=== PATIENT | male | born 1970 | race Caucasian/White ===

== ENCOUNTER 2016-10-31 09:35 | Emergency (ER) | payer OTHER ==
--- NOTE | ~2016-10-31 | US85 ---
STS. [facility] A Service of [facility] RADIOLOGY TEXT RESULTS PATIENT: DUSTY DE LOS SANTOS LOCATION: SED : 72 UNIT #: [id number] AGE: [address]: Jase Vee MD SEX: M ORDER DR: [id number] [place] [id number] MR#: [id number] Acc #: [id number] NAME: DUSTY DE LOS SANTOS : 1970 SEX: M STUDY DATE/TIME: 10/31/2016 10:57 UNIT: SED ROOM: STUDY DESCRIPTION: [facility] or [facility] Attending Physician: Jase Vee M.D. Ordering Physician: Jase Vee M.D. Primary Care Physician: Primary Care Physician No MEDICAL IMAGING REPORT This report is preliminary unless electronic signature is present. EXAM Right lower extremity venous duplex ultrasound 10/31/2016. HISTORY 46-year-old male with right-sided calf and foot pain and swelling for 1 week. COMPARISON None. FINDINGS Real time kiran-scale, color Doppler, and spectral Doppler analysis of the right lower extremity deep venous system demonstrates normal venous waveforms with normal compressibility, augmentation throughout. No evidence of right lower extremity deep venous thrombosis. IMPRESSION Negative for right lower extremity DVT. Dictated by... Jose Adams M.D. THIS IS AN ELECTRONICALLY VERIFIED REPORT Jose Adams M.D. at 11/01/2016 5:00 PM Leila TD: 10/31/2016 13:19 JOB #: [id number] MEDICAL IMAGING REPORT Page 1 of 1
[~2016-10-31 09:35] MED LIST: DARVOCET-N 1001 TAB PO
[2016-10-31 10:44] LABS: BASOPHIL% 0.5 % (0-2.5); EOSINOPHIL# 0.4 X10e3 (0-0.7); EOSINOPHIL% 5.1 % (0.0-7.0); HEMATOCRIT 37.9 % (38.0-50.0); LYMPHOCYTE# 1.7 X10e3 (1.0-3.5); LYMPHOCYTE% 22.9 % (17.0-45.0); MEAN CELL VOLUME 83.2 FL (83-96); MEAN CORPUSCULAR HEMOGLOBIN 28.6 PG (28-34); MEAN CORPUSCULAR HGB CONC 34.4 g/dL (30-36); MEAN PLATELET VOLUME 7.9 FL (6.5-11.5); MONOCYTE# 0.6 X10e3 (0-1.0); NEUTROPHIL# 4.6 X10e3 (1.5-7.1); NEUTROPHIL% 63.5 % (40-75); PLATELET COUNT 289 X10e3 (140-420); RED BLOOD COUNT 4.55 X10e (3.90-5.60); RED CELL DISTRIBUTION WIDTH 12.9 % (11.0-15.5); WHITE BLOOD COUNT 7.3 X10e3 (4.0-10.5)
[2016-10-31 10:47] LABS: DIFF IND NO
[2016-10-31 10:54] LABS: BUN/CREATININE RATIO 11.11; CALCIUM SERUM 8.4 mg/dL (8.4-10.2); CREATININE SERUM 0.9 mg/dL (0.6-1.4); GLOM FILT RATE Estimated 103.5 mL/min (>60); POTASSIUM 3.2 mmol/L (3.5-5.1)
== END 2016-10-31 11:49 | disposition home or self-care (01) ==
LOC: SED 09:35
PROVIDERS: Emergency Medicine
DX: L03.115 Cellulitis of right lower limb (principal); E87.6 Hypokalemia; F17.200 Nicotine dependence, unspecified, uncomplicated; Z98.890 Other specified postprocedural states
CPT/HCPCS: 36415; 80048; 85025; 87040; 93971; 99284

== ENCOUNTER 2016-12-29 14:27 | Inpatient (IN) | payer OTHER ==
--- NOTE | ~2016-12-29 | CT90 ---
[facility]. [facility] A Service of [facility] RADIOLOGY TEXT RESULTS PATIENT: DUSTY DE LOS SANTOS LOCATION: [facility] 564-01 : 72 UNIT #: [id number] AGE: [address]: Kimi Orona MD SEX: M ORDER DR: [id number] [place] [id number] E MR#: [id number] Acc #: [id number] NAME: DUSTY DE LOS SANTOS : 1970 SEX: M STUDY DATE/TIME: 12/29/2016 16:36 UNIT: SED ROOM: STUDY DESCRIPTION: CT Lower Ext Lt W Cont Attending Physician: Osei Sweeney M.D. Ordering Physician: Osei Sweeney M.D. Primary Care Physician: No Primary Care Physician MEDICAL IMAGING REPORT This report is preliminary unless electronic signature is present. EXAM CT of the left lower extremity. INDICATIONS Superficial infection of the left leg. Staph infection. Observation for abscess. 4-day duration. TECHNIQUE CT of the left lower extremity utilizing 100 mL Isovue-370 IV contrast. Coronal and sagittal reconstructions were obtained. This CT exam was performed with one or more of the following radiation dose reduction techniques: automatic exposure control, adjustment of mA and/or kV according to patient size, and iterative reconstruction. COMPARISON None available. FINDINGS There is generalized stranding within the subcutaneous fat with associated skin thickening overlying the anterior aspect of the distal thigh. Within the subcutaneous fat, there is a small loculated collection measuring 3.9 x 1.65 x 5.8 cm. This has an appearance typical for an abscess. The abscess is located along the distal third of the anterior thigh. No involvement of the anterior muscular compartment is identified. No underlying osseous abnormalities. There is no effusion. Patient does have a small Coffey's cyst in the left popliteal fossa. The vasculature in the left lower extremity is patent. No pathologically enlarged inguinal lymph nodes. There are a few small lymph nodes; however, they are subcentimeter in size. IMPRESSION 1. Area of focal inflammation along the anterior aspect of the distal [facility] A Service of [facility] RADIOLOGY TEXT RESULTS PATIENT: DUSTY DE LOS SANTOS LOCATION: [facility] 564-01 : 72 UNIT #: [id number] AGE: [address]: Kimi Orona MD SEX: M ORDER DR: thigh, compatible with the clinical history of cellulitis. 2. Loculated fluid collection in the region of the cellulitis isolated to the subcutaneous fat, measuring up to 5.8 cm. This is consistent with a small abscess. 3. No involvement of the adjacent muscular compartment. Dictated by... Syed Huerta M.D. THIS IS AN ELECTRONICALLY VERIFIED REPORT Syed Huerta M.D. at 12/30/2016 2:45 PM TAYLOR/rosemarie TD: 12/29/2016 18:45 JOB #: [id number] MEDICAL IMAGING REPORT Page 1 of 1
--- NOTE | ~2016-12-29 | DS ---
Unit #: [id number] #: [id number] Patient: DUSTY DE LOS SANTOS [id number] [address] [place], [place] [address] [id number] I MR#: [id number] NAME: DUSTY DE LOS SANTOS ROOM: 564 Age: 46 Sex: M Admission Date: 12/29/2016 : 1970 Discharge Date: 12/31/2016 Attending Physician: Kimi Orona M.D. Primary Care Physician: Primary Care Physician No DISCHARGE SUMMARY REASON FOR ADMISSION Left thigh abscess. HISTORY OF PRESENT ILLNESS/HOSPITAL COURSE Please refer to History and Physical for complete details of initial part of hospital course. Consultation was subsequently placed to [facility] for evaluation. Please see their procedure note for details. The patient underwent I and D per [facility]. Postoperatively he otherwise did well. He did have an episode of acute hypotension, likely secondary to pain medications. However, he did improve with IV fluids. This morning he is otherwise stable feeling well. Surgery services have cleared him from their standpoint for discharge home. He should have dressing changes on a b.i.d. basis and follow up with [facility] in approximately one to two weeks. Routine laboratory studies were ascertained through this hospital course. HIV screen was negative. CBC was noted on admission to have white count 11.1, hemoglobin 10.5, MCV was noted to be 81. His urine drug screen was positive for benzodiazepines, amphetamines, marijuana, as well as opioids. His wound culture and sensitivity did grow Staph aureus. Today, at time of discharge, his hemoglobin is 10.6, white count 14.3. BMP is otherwise unremarkable. He did undergo a CT of his lower extremity with contrast while here. There was a loculated fluid collection which was noted. The patient will be discharged home with appropriate follow up as outlined above. FINAL DISCHARGE DIAGNOSES 1. Left hip abscess/cellulitis, status post incision and drainage. 2. Polysubstance abuse/likely IV drug abuse. DISCHARGE MEDICATIONS 1. Doxycycline 100 mg p.o. b.i.d. times 10 days. 2. Lortab 7.5/325 one tab q.4 h. p.r.n. #24, prescription given by [facility]. Dictated by... Samuel Yo/corazon TD: 01/02/2017 22:45 Unit #: [id number] #: [id number] Patient: DUSTY DE LOS SANTOS JOB #: [id number] DISCHARGE SUMMARY Page 1 of 1 X Edwige Holden MD X DISCHARGE SUMMARY
--- NOTE | ~2016-12-29 | OR ---
Unit #: [id number] #: [id number] Patient: DUSTY DE LOS SANTOS [id number] [address] [address] [id number] Dennis MR#: [id number] NAME: DUSTY DE LOS SANTOS ROOM: 564 Date of Procedure: 12/30/2016 Admission Date: 12/29/2016 Surgeon: aVrun Chatman III, M.D. : 1970 Attending Physician: Kimi Orona M.D. Primary Care Physician: Primary Care Physician No OPERATIVE REPORT PREOPERATIVE DIAGNOSIS Left thigh abscess. POSTOPERATIVE DIAGNOSIS Left thigh abscess. PROCEDURE PERFORMED Incision and drainage of left thigh abscess. ANESTHESIA General. SPECIMEN Cultures and tissue sent to Pathology. COMPLICATIONS None apparent. ESTIMATED BLOOD LOSS Minimal. INDICATIONS FOR PROCEDURE This is a 46-year-old gentleman, who has had some cellulitis with an abscess formation. He is here today for incision and drainage. DESCRIPTION OF PROCEDURE After consent was obtained, the patient was brought to the operating room and placed in the supine position. General anesthetic was administered, and his left thigh area was prepped and draped in standard surgical fashion. I made a circular incision around the indurated area. This led to a fairly large abscess cavity. All the loculated areas were broken up and cultures were sent. I achieved good hemostasis and I packed the wound with Betadine soaked Kerlix gauze. He tolerated the procedure without any problems and returned to the recovery room in stable condition. Dictated by... Varun Chatman III, M.D. VCL/rell TD: 12/30/2016 15:43 Unit #: [id number] #: [id number] Patient: DUSTY DE LOS SANTOS JOB #: [id number] OPERATIVE REPORT Page 1 of 1 X Varun Chatman III, MD PROCEDURE OPERATIVE NOTE
--- NOTE | ~2016-12-29 | HP ---
Unit #: [id number] #: [id number] Patient: DUSTY DE LOS SANTOS [id number] [address] [address] [id number] I MR#: [id number] NAME: DUSTY DE LOS SANTOS ROOM: 564 Age: 46 Sex: M Admission Date: 12/29/2016 : 1970 Attending Physician: Milton Jackson M.D. Primary Care Physician: Primary Care Physician No HISTORY AND PHYSICAL CHIEF COMPLAINT Left thigh abscess and cellulitis. HISTORY OF PRESENT ILLNESS This pleasant 46-year-old male was transferred from [facility] for an abscess and cellulitis over the anterior left thigh. About four days ago, the patient manipulated a pimple-like lesion over his anterior left thigh. He states he was able to express some greenish material, however, notes increasing pain, swelling, now involving the entire left thigh and extending into the left calf region associated with nausea and vomiting and pain. He does have a history of staph infections in the past. He went to [facility] where he was treated with IV vancomycin, morphine, Zofran, IV fluids. PAST MEDICAL HISTORY 1. History of staph abscess in the past. 2. Right arthroscopic knee surgery. ALLERGIES None. HOME MEDICATIONS None. SOCIAL HISTORY The patient lives with his sister. He smokes about a pack per day of tobacco. Does not drink alcohol. Although he injected heroin in the past, he no longer injects drugs. 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 FAMILY HISTORY Negative for diabetes. REVIEW OF SYSTEMS Notable for nausea, vomiting, leg pain, abscess, staph, tobacco use, previous heroin abuse, right arthroscopic knee surgery. All other systems were reviewed and are negative. PHYSICAL EXAMINATION VITAL SIGNS: Temperature 98.7, pulse 109, respirations 18, blood pressure 122/72, O2 saturation 99% on room air. GENERAL: Pleasant, 46-year-old male who looks to be uncomfortable. HEENT: Eyes PERRLA. Extraocular muscles are intact. Pharynx benign. Unit #: [id number] #: [id number] Patient: DUSTY DE LOS SANTOS NECK: Supple without adenopathy or thyromegaly. CHEST: Clear. HEART: Normal S1, S2 without S3, S4 or murmur. ABDOMEN: Bowel sounds are present. No hepatosplenomegaly, tenderness or masses. EXTREMITIES: Without clubbing, cyanosis, or edema. Pedal pulses are present. SKIN: Early abscess above the right upper lip. There is an abscess over the left anterior thigh with extensive cellulitis of the left thigh extending into the left calf. Pedal pulses are present. No splinter hemorrhages noted over the fingernail beds. Multiple tattoos are noted. NEUROLOGIC: Awake, alert, oriented. Cranial nerves are intact. Equal strength throughout. DIAGNOSTIC STUDIES LABORATORY: Hematocrit 37.7, white blood cell count 16, normal platelet count. SMA-12 is normal. Normal lactic acid. IMAGING: CT scan shows area of focal inflammation along the anterior aspect of the distal thigh compatible with clinical history of cellulitis. Loculated fluid collection in the region of the cellulitis isolated to the subcutaneous fat measuring up to 5.8 cm consistent with an abscess. No involvement of the adjacent muscular compartment. ASSESSMENT 1. Left thigh abscess with extensive cellulitis. 2. Early abscess above the right upper lip. PLAN 1. IV vancomycin and give one dose of Levaquin. 2. Surgical consultation. 3. Supportive treatment. 4. DVT prophylaxis. Dictated by Bee Kim M.D. AML/cs TD: 12/29/2016 21:55 JOB #: [id number] HISTORY AND PHYSICAL Page 1 of 1 X Bee Kim MD X HISTORY AND PHYSICAL
--- NOTE | ~2016-12-29 | CO ---
Unit #: [id number] #: [id number] Patient: DUSTY DE LOS SANTOS [id number] [address] [place], [place] [address] [id number] I MR#: [id number] NAME: DUSTY DE LOS SANTOS ROOM: 564 Age: 46 Sex: M Admission Date: 12/29/2016 : 1970 Attending Physician: Kimi Orona M.D. Consultation Date: 12/30/2016 CONSULTATION REPORT CHIEF COMPLAINT Left thigh abscess. HISTORY OF PRESENT ILLNESS This is a 46-year-old gentleman, who has had a painful left thigh abscess. It has progressively gotten worse with some associated cellulitis over the last four days. He has not had any prior episodes. PAST MEDICAL HISTORY Negative. PAST SURGICAL HISTORY He has had a right knee arthroscopic surgery. ALLERGIES He has no known drug allergies. MEDICATIONS He is on no chronic medications. SOCIAL HISTORY He does smoke. He denies any alcohol use. FAMILY HISTORY Noncontributory. REVIEW OF SYSTEMS Negative for fevers or weight loss and is otherwise as above. PHYSICAL EXAMINATION VITAL SIGNS: Temperature is 98.7, heart rate is 109, respiratory rate 18, blood pressure is 122/72. GENERAL: He is in no acute distress. HEENT: Pupils are equal and reactive to light and accommodation. His extraocular muscles are intact. NECK: Without masses or bruits. LUNGS: Show good breath sounds bilaterally with equal air exchange. CARDIAC: Shows regular rate and rhythm without murmur. ABDOMEN: Soft, nondistended, and nontender with no organomegaly. EXTREMITIES: Show some severe cellulitis in the left anterior thigh area with a pointing area that is indurated consistent with an abscess. NEUROLOGIC: He is alert and oriented. There are no focal deficits. OVERALL IMPRESSION Unit #: [id number] #: [id number] Patient: DUSTY DE LOS SANTOS This gentleman has a left thigh abscess with cellulitis. I discussed incision and drainage. He understands the procedure including risks and benefits and need for postoperative dressing changes. Dictated by... Varun Chatman III, M.D. VCL/rell TD: 12/31/2016 12:34 JOB #: [id number] CONSULTATION REPORT Page 1 of 1 X Varun Chatman III, MD CONSULTATION REPORT
[2016-12-29 15:59] LABS: BASOPHIL# 0.1 X10e3 (0-0.3); BASOPHIL% 0.5 % (0-2.5); EOSINOPHIL# 0.2 X10e3 (0-0.7); EOSINOPHIL% 1.4 % (0.0-7.0); HEMATOCRIT 37.7 % (38.0-50.0); HEMOGLOBIN 12.6 gm/dL (13.0-16.0); LYMPHOCYTE# 2.9 X10e3 (1.0-3.5); LYMPHOCYTE% 18.4 % (17.0-45.0); MEAN CELL VOLUME 81.6 FL (83-96); MEAN CORPUSCULAR HEMOGLOBIN 27.2 PG (28-34); MEAN CORPUSCULAR HGB CONC 33.4 g/dL (30-36); MEAN PLATELET VOLUME 8.4 FL (6.5-11.5); MONOCYTE# 0.7 X10e3 (0-1.0); MONOCYTE% 4.7 % (3.0-12.0); PLATELET COUNT 293 X10e3 (140-420); RED BLOOD COUNT 4.62 X10e (3.90-5.60); RED CELL DISTRIBUTION WIDTH 13.9 % (11.0-15.5)
[2016-12-29 16:00] LABS: DIFF IND NO
[2016-12-29 16:18] LABS: ALBUMIN SERUM 3.5 g/dL (3.5-5.0); BILIRUBIN, DIRECT 0.3 mg/dL (0.0-0.2); BILIRUBIN,INDIRECT 0.5 mg/dL (0.0-0.9); BILIRUBIN,TOTAL 0.8 mg/dL (0.2-2.0); BUN/CREATININE RATIO 14.28; CALCIUM SERUM 8.6 mg/dL (8.4-10.2); CREATININE SERUM 0.7 mg/dL (0.6-1.4); GLOM FILT RATE Estimated 114.8 mL/min (>60); POTASSIUM 3.4 mmol/L (3.5-5.1); PROTEIN TOTAL SERUM 7.2 g/dL (6.0-8.3)
[2016-12-30 05:05] LABS: BASOPHIL% 0.3 % (0-2.5); EOSINOPHIL# 0.3 X10e3 (0-0.7); EOSINOPHIL% 2.9 % (0.0-7.0); HEMATOCRIT 31.7 % (38.0-50.0); LYMPHOCYTE# 2.9 X10e3 (1.0-3.5); MEAN CELL VOLUME 81.4 FL (83-96); MEAN CORPUSCULAR HEMOGLOBIN 27.1 PG (28-34); MEAN CORPUSCULAR HGB CONC 33.3 g/dL (30-36); MEAN PLATELET VOLUME 8.4 FL (6.5-11.5); MONOCYTE# 0.7 X10e3 (0-1.0); MONOCYTE% 6.3 % (3.0-12.0); NEUTROPHIL# 7.2 X10e3 (1.5-7.1); NEUTROPHIL% 64.5 % (40-75); PLATELET COUNT 256 X10e3 (140-420); RED BLOOD COUNT 3.89 X10e (3.90-5.60); RED CELL DISTRIBUTION WIDTH 13.7 % (11.0-15.5); WHITE BLOOD COUNT 11.1 X10e3 (4.0-10.5)
[2016-12-30 05:17] LABS: HEMOGLOBIN 10.5 gm/dL (13.0-16.0)
[2016-12-30 05:53] LABS: DIFF IND NO
[2016-12-30 06:28] LABS: BUN/CREATININE RATIO 11.25; CALCIUM SERUM 8.2 mg/dL (8.4-10.2); CREATININE SERUM 0.8 mg/dL (0.6-1.4); GLOM FILT RATE Estimated 108.7 mL/min (>60); POTASSIUM 3.7 mmol/L (3.5-5.1)
[2016-12-30 18:09] LABS: AMPHETAMINE POS (NEG); BARBITURATES NEG (NEG); BENZODIAZEPINES POS (NEG); COCAINE NEG (NEG); MARIJUANA POS (NEG); OPIATES POS (NEG); TRICYCLIC ANTIDEPRESSANTS NEG (NEG); U METHADONE NEG (NEG)
[2016-12-31 07:40] LABS: HEMATOCRIT 32.1 % (38.0-50.0); HEMOGLOBIN 10.6 gm/dL (13.0-16.0); MEAN CELL VOLUME 82.4 FL (83-96); MEAN CORPUSCULAR HEMOGLOBIN 27.1 PG (28-34); MEAN CORPUSCULAR HGB CONC 32.9 g/dL (30-36); MEAN PLATELET VOLUME 8.4 FL (6.5-11.5); RED BLOOD COUNT 3.9 X10e (3.90-5.60); RED CELL DISTRIBUTION WIDTH 13.9 % (11.0-15.5); WHITE BLOOD COUNT 14.3 X10e3 (4.0-10.5)
[2016-12-31 08:16] LABS: BUN/CREATININE RATIO 12.85; CREATININE SERUM 0.7 mg/dL (0.6-1.4); GLOM FILT RATE Estimated 114.8 mL/min (>60); POTASSIUM 4.2 mmol/L (3.5-5.1)
[2016-12-31] MEDS ORDERED: DAKIN'S MODIF1000 ML TOP (12:44)
[2016-12-31] MEDS ORDERED: DOXYCYCLINE HY100 M4 PO (12:45)
[2016-12-31] MEDS ORDERED: NORCO 7.5-3251 EACH PO (12:46)
== END 2016-12-31 16:34 | disposition home or self-care (01) | DRG 854 ==
LOC: SED 14:27 → C5C 17:36 → SEDOF 17:36 → SED 17:36 → SEDOF 20:30 → C5C 20:30
PROVIDERS: Emergency Medicine; Internal Medicine; Surgery
PROC: 05H533Z Insertion of Infusion Device into Right Subclavian Vein, Percutaneous Approach (ICD-10-PCS; 2016-12-30)
PROC: 0J9M0ZZ Drainage of Left Upper Leg Subcutaneous Tissue and Fascia, Open Approach (ICD-10-PCS; principal; 2016-12-30 12:00)
DX: A41.9 Sepsis, unspecified organism (principal); L02.416 Cutaneous abscess of left lower limb; L03.116 Cellulitis of left lower limb; F17.210 Nicotine dependence, cigarettes, uncomplicated; K13.0 Diseases of lips; D64.9 Anemia, unspecified; E83.51 Hypocalcemia; I95.81 Postprocedural hypotension; F19.10 Other psychoactive substance abuse, uncomplicated; B95.61 Methicillin susceptible Staphylococcus aureus infection as the cause of diseases classified elsewhere
CPT/HCPCS: 36415; 73701; 80048; 80076; 80307; 83605; 85025; 85027; 87070; 87075; 87077; 87186; 87205; 87806; 88304; 88312; 96374; 96375; 99285; J1100; J1650; J1885; J1956; J2250; J2270; J2310; J2405; J2765; J3370; Q9967